=== PATIENT | female | born 1975 | race Caucasian/White ===

== ENCOUNTER 2020-08-23 11:52 | Emergency (ER) | payer MEDICAID ==
--- NOTE | 2020-08-23 12:35 | EDM.PDOC ---
ED HPI GENERAL MEDICAL PROBLEM - General Chief Complaint: Genitourinary Problem Stated Complaint: BLADDER INFECTION Time Seen by Provider: 08/23/20 12:20 Source of Information: Reports: Patient, Old Records, RN History Limitations: Reports: No Limitations - History of Present Illness INITIAL COMMENTS - FREE TEXT/NARRATIVE: 45 yo female from [place] presents with dysuria and frequency x 4 days. Had a fever last night. No vomiting. Has a pHx of recurrent UTI's and kidney stones. Has not been to the clinic. Has been taking AZO hoping it would just go away. Onset: Gradual Onset Date: 08/19/20 Duration: Day(s): (4), Getting Worse Location: Reports: Back (L flank), Pelvis (bladder/urethra) Quality: Reports: Burning Severity: Moderate Improves with: Reports: Medication (AZO) Worsens with: Reports: Other (voiding) Context: Reports: Other (See HPI) Associated Symptoms: Reports: Fever/Chills (last night) Treatments REINSPECTOR: Reports: Acetaminophen (last night), NSAIDS (this morning) - Related Data Allergies Allergy/AdvReac Type Severity Reaction Status Date / Time Iodine and Iodide Containing Allergy Severe Anaphylactic Verified 08/23/20 12:23 Produc Shock Sulfa (Sulfonamide Allergy Severe Anaphylactic Verified 08/23/20 12:23 Antibiotics) Shock epinephrine Allergy Cardiac Verified 08/23/20 12:23 Arrest shellfish derived Allergy Anaphylactic Verified 08/23/20 12:24 Shock Home Meds: Home Meds Amitriptyline [Elavil] 50 mg PO BEDTIME 08/23/20 [History] Cyanocobalamin (Vitamin B-12) [Cyanocobalamin Injection] 1,000 mcg IJ Q14D 08/23/20 [History] Folic Acid 1 mg PO BEDTIME 08/23/20 [History] cephALEXin [Cephalexin] 500 mg PO Q8H #16 tablet 08/23/20 [Rx] Past Medical History HEENT History: Reports: Allergic Rhinitis Genitourinary History: Reports: Renal Calculus, UTI, Recurrent Musculoskeletal History: Reports: Fibromyalgia, Osteoarthritis Neurological History: Reports: Concussion, Migraines, MS Hematologic History: Reports: B12 Deficiency Oncologic (Cancer) History: Reports: Ovarian - Infectious Disease History Infectious Disease History: Reports: None - Past Surgical History GI Surgical History: Reports: Cholecystectomy Female Surgical History: Reports: None Neurological Surgical History: Reports: None Social & Family History - Tobacco Use Second Hand Smoke Exposure: No - Recreational Drug Use Recreational Drug Use: No ED ROS GENERAL - Review of Systems Review Of Systems: See Below Constitutional: Reports: Fever, Chills HEENT: Reports: No Symptoms Respiratory: Reports: No Symptoms Cardiovascular: Reports: No Symptoms Endocrine: Reports: No Symptoms GI/Abdominal: Reports: No Symptoms. Denies: Nausea : Reports: Flank Pain (left), Frequency, Urgency Musculoskeletal: Reports: No Symptoms Skin: Reports: No Symptoms Neurological: Reports: No Symptoms Psychiatric: Reports: No Symptoms ED EXAM, RENAL/ - Physical Exam Exam: See Below Exam Limited By: No Limitations General Appearance: Alert, WD/WN, No Apparent Distress Eye Exam: Bilateral Eye: Normal Inspection Ears: Normal External Exam, Normal Canal, Hearing Grossly Normal. No: Hearing Loss Nose: Normal Inspection, No Blood Throat/Mouth: Normal Inspection, Normal Lips, Normal Voice, No Airway Compromise Head: Atraumatic, Normocephalic Neck: Normal Inspection Respiratory/Chest: No Respiratory Distress, Lungs Clear, Normal Breath Sounds, No Accessory Muscle Use Cardiovascular: Regular Rate, Rhythm, No Edema. No: Tachycardia Back Exam: CVA Tenderness (L). No: CVA Tenderness (R) Extremities: Normal Inspection Neurological: Alert, Oriented, CN II-XII Intact, Normal Cognition, No Motor/Sensory Deficits Psychiatric: Normal Affect, Normal Mood Skin Exam: Warm, Dry, Intact, Normal Color, No Rash Course - Vital Signs Last Recorded V/S: Last Vital Signs Temp 37.1 C 08/23/20 12:09 Pulse 92 08/23/20 12:09 Resp 14 08/23/20 12:09 BP 135/79 08/23/20 12:09 Pulse Ox 99 08/23/20 12:09 - Orders/Labs/Meds Orders: Active Orders 24 hr Category Date Time Status CULTURE URINE [RM] Stat Lab 08/23/20 12:43 Ordered Labs: Laboratory Tests 08/23/20 Range/Units 12:16 Urine Color Yellow (YELLOW) Urine Appearance Cloudy A (CLEAR) Urine pH 6.0 (5.0-8.0) Ur Specific [place] 1.015 (1.008-1.030) Urine Protein 30 H (NEGATIVE) mg/dL Urine Glucose (UA) Negative (NEGATIVE) mg/dL Urine Ketones Negative (NEGATIVE) mg/dL Urine Occult Blood Moderate H (NEGATIVE) Urine Nitrite Positive H (NEGATIVE) Urine Bilirubin Negative (NEGATIVE) Urine Urobilinogen 0.2 (0.2-1.0) EU/dL Ur Leukocyte Esterase Large H (NEGATIVE) Urine RBC 10-20 H (0-5) Urine WBC 75-100 H (0-5) Ur Epithelial Cells Not seen Amorphous Sediment Not seen Urine Bacteria Many Urine Mucus Not seen Meds: Medications Discontinued Medications Generic Name Dose Route Start Last Admin Trade Name Freq PRN Reason Stop Dose Admin Cephalexin 500 mg 08/23/20 12:43 Cephalexin 250 Mg Cap PO 08/23/20 12:44 ONETIME ONE Departure - Departure Time of Disposition: 12:45 Disposition: Home, Self-Care 01 Condition: Fair Clinical Impression: UTI (urinary tract infection) Qualifiers: Urinary tract infection type: acute cystitis Hematuria presence: without h ematuria Qualified Code(s): N30.00 - Acute cystitis without hematuria - Discharge Information *PRESCRIPTION DRUG MONITORING PROGRAM REVIEWED*: Not Applicable *COPY OF PRESCRIPTION DRUG MONITORING REPORT IN PATIENT RADHA: Not Applicable Prescriptions: cephALEXin [Cephalexin] 500 mg PO Q8H #16 tablet Instructions: Urinary Tract Infection, Adult, [id number] Referrals: Jimena Underwood PA-C [Primary Care Provider] - Forms: ED Department Discharge Additional Instructions: Take cephalexin every 8 hrs until gone. Drink ample fluids so that your urine is light yellow in color. AZO as needed. Recheck with your provider if not improving within 2 days. Sepsis Event Note (ED) - Evaluation Sepsis Screening Result: Possible Sepsis Risk - Focused Exam Vital Signs: Vital Signs Temp Pulse Resp BP Pulse Ox 08/23/20 12:09 37.1 C 92 14 135/79 99 - My Orders Last 24 Hours: My Active Orders 08/23/20 12:43 CULTURE URINE [RM] Stat - Assessment/Plan Last 24 Hours: My Active Orders 08/23/20 12:43 CULTURE URINE [RM] Stat
[2020-08-23] MEDS ORDERED: Cephalexin 250 MG Cap PO ONE (12:43)
== END 2020-08-23 13:17 | disposition home or self-care (01) ==
LOC: JP.ED 11:52
DX: N30.00 Acute cystitis without hematuria (principal); Z91.048 Other nonmedicinal substance allergy status; Z88.2 Allergy status to sulfonamides; Z91.013 Allergy to seafood; Z79.899 Other long term (current) drug therapy
CPT/HCPCS: 81001; 87086; 87088; 87186; 99283; A9270

== ENCOUNTER 2023-11-13 06:13 | Day surgery (SDC) | payer MEDICAID ==
[2023-11-13] MEDS: Lactated Ringers 1,000 ML IV SCH (07:01)
[2023-11-13] MEDS ORDERED: Propofol 200 MG/20 ML SDV ONE ×2 (07:13→07:58)
[2023-11-13] MEDS ORDERED: Midazolam 1 MG/ML 2 ML SDV ONE (07:13)
[2023-11-13] MEDS ORDERED: fentaNYL 50 MCG/ML SDV ONE (07:13)
== END 2023-11-13 09:55 | disposition home or self-care (01) ==
LOC: JP.SDS 06:13
PROVIDERS: ATTEND Family Medicine
DX: Z12.11 Encounter for screening for malignant neoplasm of colon (principal); R19.5 Other fecal abnormalities; Z88.2 Allergy status to sulfonamides; Z91.041 Radiographic dye allergy status; Z91.013 Allergy to seafood
CPT/HCPCS: 45378; J2250; J2704; J3010; J7120